=== PATIENT | female | born 1965 | race Caucasian/White ===

== ENCOUNTER → 2020-09-05 | Outpatient (CLI) | payer BC ==
[2020-09-05 08:17] LABS: Basophils # (A) 0.1 k/uL (0-0.2); Basophils % (A) 1 %; Eosinophils # (A) 0.4 k/uL (0-0.7); Eosinophils % (A) 7 %; HCT 43.7 % (34.0-46.0); HGB 14.5 gm/dL (11.4-16.0); Lymphocytes # (A) 2.4 k/uL (1.0-4.8); Lymphocytes % (A) 40 %; MCHC 33.1 g/dL (31.0-37.0); MCV 96.7 fL (80.0-100.0); Mean Platelet Volume 7.1; Monocytes # (A) 0.3 k/uL (0-1.0); Monocytes % (A) 5 %; Neutrophils # (A) 2.6 k/uL (1.3-7.7); Neutrophils % (A) 43 %; Platelet Count 271 k/uL (150-450); RBC 4.52 m/uL (3.80-5.40); RDW 12.6 % (11.5-15.5); WBC 5.9 k/uL (3.8-10.6)
[2020-09-05 11:21] LABS: Urine Creatinine 40.5 mg/dL
[2020-09-05 11:31] LABS: African American GFR (CKD) 97.6 (60.0-200.0); Albumin 4.7 g/dL (3.80-4.90); Albumin/Globulin Ratio 1.88 (1.60-3.17); Anion Gap 4.3 mmol/L (4.00-12.00); BUN/Creat Ratio 16.25 Ratio (12.00-20.00); Calcium 9.9 mg/dL (8.7-10.3); Carbon Dioxide 32.7 mmol/L (21.6-31.8); Chol/HDL Ratio 2.14; Globulin 2.5 g/dL (1.6-3.3); LDL Cholesterol,Calculated 110.8 mg/dL (0.0-131.0); Non-African American GFR(CKD) 84.2 (60.0-200.0); Potassium 4.1 mmol/L (3.5-5.5); Total Protein 7.2 g/dL (6.2-8.2); VLDL Calculation 12.2 mg/dL (5.00-40.00)
== END | disposition home or self-care (01) ==
LOC: LABWHC1 07:43
PROVIDERS: ATTEND Family Medicine
DX: Z00.00 Encounter for general adult medical examination without abnormal findings (principal); I10 Essential (primary) hypertension
CPT/HCPCS: 36415; 80053; 80061; 82043; 82570; 84443; 85025

== ENCOUNTER 2021-02-21 10:37 | Emergency (ER) | payer BC ==
[2021-02-21 10:48] VITALS: TEMP 97.5
--- NOTE | 2021-02-21 11:22 | ED ---
Lower Extremity Injury HPI - General Chief Complaint: Extremity Injury, Lower Stated Complaint: left side pain & tingling Time Seen by Provider: 02/21/21 10:54 Source: patient, RN notes reviewed Mode of arrival: wheelchair Limitations: no limitations - History of Present Illness Initial Comments: This a 55-year-old female presents emergency Department chief complaint of left leg pain. Patient states that she's been having abdominal pain states that she felt she pulled a muscle from vomiting. Patient states that she then had some tingling right sciatica. Patient states she became concerned because she had her [employer] vaccine 5 days ago and states that she saw new's article that she should be concerned. Denies any chest pain shortness breath. Patient states that she has chronic left trapezius muscle spasm in which she receives massages to help. She states that she had the same symptoms but have resolved. Patient is concerned about possible clot. Denies any bowel bladder incontinence or retention. - Related Data Allergies Allergy/AdvReac Type Severity Reaction Status Date / Time No Known Allergies Allergy Verified 02/21/21 10:47 Review of Systems ROS Statement: Those systems with pertinent positive or pertinent negative responses have been documented in the HPI. ROS Other: All systems not noted in ROS Statement are negative. Past Medical History Past Medical History: Hypertension History of Any Multi-Drug Resistant Organisms: None Reported Past Surgical History: No Surgical Hx Reported Past Psychological History: No Psychological Hx Reported Smoking Status: Never smoker Past Alcohol Use History: Daily Past Drug Use History: None Reported General Exam Limitations: no limitations General appearance: alert, in no apparent distress Head exam: Present: atraumatic, normocephalic, normal inspection Eye exam: Present: normal appearance, PERRL, EOMI. Absent: scleral icterus, conjunctival injection, periorbital swelling ENT exam: Present: normal exam, normal oropharynx, mucous membranes moist Neck exam: Present: normal inspection, full ROM. Absent: tenderness, meningismus, lymphadenopathy Respiratory exam: Present: normal lung sounds bilaterally. Absent: respiratory distress, wheezes, rales, rhonchi, stridor Cardiovascular Exam: Present: regular rate, normal rhythm, normal heart sounds. Absent: systolic murmur, diastolic murmur, rubs, gallop, clicks Extremities exam: Present: other (Full strength and range of motion of all extremities, nontender calf pulses are equal bilaterally) Back exam: Present: full ROM. Absent: tenderness, paraspinal tenderness, vertebral tenderness Neurological exam: Present: alert, oriented X3 Skin exam: Present: warm, dry, intact, normal color. Absent: rash Course Vital Signs 02/21/21 02/21/21 10:44 12:43 Temperature 97.5 F L Pulse Rate 69 56 L Respiratory 18 18 Rate Blood Pressure 148/88 117/83 O2 Sat by Pulse 100 100 Oximetry Medical Decision Making - Medical Decision Making Ultrasound negative. Patient is otherwise neurologically intact. Patient symptoms more consistent with lumbar radiculopathy. Patient has no red flag symptoms. Disposition Clinical Impression: Lumbar radiculopathy, acute Disposition: HOME SELF-CARE Condition: Stable Instructions (If sedation given, give patient instructions): Lumbar Radiculopathy (ED) Additional Instructions: Please return to the Emergency Department if symptoms worsen or any other concerns. Is patient prescribed a controlled substance at d/c from ED?: No Referrals: Marin Moore MD [Primary Care Provider] - 1-2 days Time of Disposition: 13:02
[2021-02-21 11:24] VITALS: RESP 18
[2021-02-21 12:46] VITALS: BP 117/83; PULSE 56
--- NOTE | 2021-02-21 12:53 | US ---
EXAMINATION TYPE: US venous doppler duplex LE LT DATE OF EXAM: 02/21/2021 11:39 AM COMPARISON: NONE CLINICAL HISTORY: pain. Left leg tingling SIDE PERFORMED: Left TECHNIQUE: The lower extremity deep venous system is examined utilizing real time linear array sonog dilcia with graded compression, doppler sonography and color-flow sonography. VESSELS IMAGED: Common Femoral Vein Deep Femoral Vein Greater Saphenous Vein * Femoral Vein Popliteal Vein Small Saphenous Vein * Proximal Calf Veins (* superficial vessels) Left Leg: Negative for DVT Grayscale, color doppler, spectral doppler imaging performed of the deep veins of the left lower extr emity. There is normal flow, compressibility, vascular waveforms. IMPRESSION: No ultrasound evidence for acute DVT in the left lower extremity.
== END 2021-02-21 13:15 | disposition home or self-care (01) ==
LOC: EC 10:37
DX: M54.16 Radiculopathy, lumbar region (principal); I10 Essential (primary) hypertension
CPT/HCPCS: 99284

== ENCOUNTER 2021-09-01 12:22 | Emergency (ER) | payer BC ==
[2021-09-01 12:41] VITALS: BP 118/77; RESP 18; TEMP 97.8
--- NOTE | 2021-09-01 15:15 | ED ---
General Adult HPI - General Source: patient Mode of arrival: ambulatory Limitations: no limitations <Leila Sosa - Last Filed: 09/02/21 00:12> <Clarissa Calhoun - Last Filed: 09/16/21 13:35> - General Chief complaint: Back Pain/Injury Stated complaint: L side pain Time Seen by Provider: 09/01/21 14:58 - History of Present Illness Initial comments: 56-year-old female with a history of sciatica, presents to the emergency Department with complaints of low back pain that radiates down the left leg. States symptoms occur at rest and are accompanied by intermittent episodes of numbness in the left calf and hayes. Patient states she is able to maintain physical activity and ran 3 miles this morning. Does have an appointment for massage scheduled tomorrow and takes a muscle relaxer as needed. Denies any saddle anesthesia, loss of bowel or bladder control, fever, or foot drop. (Leila Sosa) - Related Data Home Medications Medication Instructions Recorded Confirmed Ascorbic Acid [Vitamin C] 1,000 mg PO DAILY 02/21/21 02/21/21 Cholecalciferol [Vitamin D3 (25 25 mcg PO DAILY 02/21/21 02/21/21 Mcg = 1000 Iu)] Grapeseed Extract 1 tab PO DAILY 02/21/21 02/21/21 Plus Low Iron 1 tab PO DAILY 02/21/21 02/21/21 Tretinoin [Tretinoin 0.025%] 1 applic TOPICAL HS 02/21/21 02/21/21 Vitamin C/Biotin [Hair, Skin and 2 tab PO DAILY 02/21/21 02/21/21 Nails] amLODIPine [Norvasc] 5 mg PO DAILY 02/21/21 02/21/21 Allergies Allergy/AdvReac Type Severity Reaction Status Date / Time No Known Allergies Allergy Verified 09/01/21 12:41 Review of Systems ROS Other: All systems not noted in ROS Statement are negative. <Leila Sosa - Last Filed: 09/02/21 00:12> ROS Other: All systems not noted in ROS Statement are negative. <Clarissa Calhoun - Last Filed: 09/16/21 13:35> ROS Statement: Those systems with pertinent positive or pertinent negative responses have been documented in the HPI. Past Medical History Past Medical History: Hypertension History of Any Multi-Drug Resistant Organisms: None Reported Past Surgical History: No Surgical Hx Reported Past Psychological History: No Psychological Hx Reported Smoking Status: Never smoker Past Alcohol Use History: Occasional Past Drug Use History: None Reported <Leila Sosa - Last Filed: 09/02/21 00:12> General Exam Limitations: no limitations General appearance: alert, in no apparent distress, other (Well-developed, well-nourished female in no acute distress. Initial temperature 97.8, pulse 62, respirations 18, blood pressure 118/77, pulse ox 99% on room air.) Respiratory exam: Present: normal lung sounds bilaterally. Absent: respiratory distress, wheezes, rales, rhonchi, stridor Cardiovascular Exam: Present: regular rate, normal rhythm, normal heart sounds. Absent: systolic murmur, diastolic murmur, rubs, gallop, clicks Left Hip exam: Present: normal inspection, full ROM. Absent: tenderness, swelling Upper Leg exam: Present: normal inspection, full ROM. Absent: tenderness Lower Leg exam: Present: normal inspection, full ROM. Absent: tenderness, Homans' sign Neurovascular tendon exam: Present: no vascular compromise. Absent: pulse deficit, abnormal cap refill, motor deficit, sensory deficit, extremity cold to touch, foot drop, significant pain with passive ROM of distal joint Back exam: Present: normal inspection, full ROM. Absent: muscle spasm, paraspinal tenderness, vertebral tenderness Expanded Back exam: Absent: saddle anesthesia Back exam: Negative Straight Leg Raising: Left, Right Neurological exam: Present: alert, oriented X3, CN II-XII intact Psychiatric exam: Present: normal affect, normal mood Skin exam: Present: warm, dry, intact, normal color. Absent: rash <Leila Sosa - Last Filed: 09/02/21 00:12> Course Vital Signs 09/01/21 09/01/21 12:37 17:38 Temperature 97.8 F Pulse Rate 62 66 Respiratory 18 Rate Blood Pressure 118/77 O2 Sat by Pulse 99 99 Oximetry Medical Decision Making - Radiology Data Radiology results: report reviewed, image reviewed <Leila Sosa - Last Filed: 09/02/21 00:12> <Clarissa Calhoun - Last Filed: 09/16/21 13:35> - Medical Decision Making 56-year-old female presents to the emergency department for evaluation of low back pain that radiates down the left leg. Physical exam findings are negative. Patient ambulates easily, makes position changes without difficulty, and has negative straight leg raises. Patient denies saddle anesthesia, foot drop, or loss of bowel and bladder control. Patient does report running 3 miles prior to arrival and states discomfort occurs with prolonged sitting. No significant findings on lumbar spine x-ray. Patient reports having a massage scheduled for this week and has already been prescribed muscle relaxers. This patient's case was discussed with my attending Dr. Calhoun. Patient is instructed to follow-up with her primary care provider for a recheck in the next 1-2 days. Return parameters were discussed in detail. Patient verbalizes understanding and agrees with this plan. (Leila Sosa) I was available for consultation in the emergency department. The history and physical exam were done by the midlevel provider. I was consulted for this patients care. I reviewed the case with the midlevel provider and based on their presentation of the patient, I agree with the assessment, medical decision making and plan of care as documented. Chart was dictated using [employer] dictation software. Attempts were made to correct any dictation errors however some typographical errors may persist. (Clarsisa Calhoun) - Radiology Data CT of the lumbar spine was obtained. Report was reviewed in its entirety. Impression per Dr. Lam is moderate facet arthropathy at the lower lumbar spine. (Leila Sosa) Disposition Is patient prescribed a controlled substance at d/c from ED?: No Time of Disposition: 16:59 <Leila Sosa - Last Filed: 09/02/21 00:12> <Clarissa Calhoun - Last Filed: 09/16/21 13:35> Clinical Impression: Back pain Disposition: HOME SELF-CARE Condition: Stable Instructions (If sedation given, give patient instructions): Acute Low Back Pain (ED) Additional Instructions: Rest as needed. Continue using your muscle relaxer as needed. Scheduled opportunities for stretching and ambulation during prolonged periods of sitting. Follow-up with your primary care provider for a recheck. Return to the emergency department with any new, worsening, or concerning symptoms. Referrals: Marin Moore MD [Primary Care Provider] - 1-2 days
--- NOTE | 2021-09-01 16:26 | XR ---
EXAMINATION TYPE: XR lumbar spine 2 or 3V DATE OF EXAM: 09/01/2021 CLINICAL HISTORY: Low back pain radiating down the right leg TECHNIQUE: Frontal and lateral images of the lumbar spine are obtained. COMPARISON: None FINDINGS: 5 lumbar type vertebral bodies. Lumbar vertebral body heights and alignment are maintained. No spondylolisthesis or spondylolysis. No significant degenerative disc changes. Moderate facet arthropathy of the lower lumbar spine most p ronounced at L3-4 and L4-5. IMPRESSION: Moderate facet arthropathy at the lower lumbar spine.
[2021-09-01 17:39] VITALS: PULSE 66
== END 2021-09-01 17:39 | disposition home or self-care (01) ==
LOC: EC 12:22
DX: M54.50 Low back pain, unspecified (principal); I10 Essential (primary) hypertension
CPT/HCPCS: 72100; 99283

== ENCOUNTER 2024-11-13 17:25 | Emergency (ER) | payer BC ==
[2024-11-13 18:01] VITALS: RESP 18; TEMP 98.2
--- NOTE | 2024-11-13 18:18 | ED ---
Abdominal Pain HPI - General Chief Complaint: Abdominal Pain Stated Complaint: ABD PN Time Seen by Provider: 11/13/24 18:04 Source: patient, RN notes reviewed Mode of arrival: ambulatory Limitations: no limitations - History of Present Illness Initial Comments: This is a 59-year-old female with no significant medical history presented to emergency room for chief complaint of intermittent abdominal pain most noted of the right upper quadrant over the past month and a half. Patient states that the pain seems to worsen at night after she has eaten or symptoms after she has had a glass of wine of the right upper quadrant wraparound into her back. She d enies associated nausea, vomiting, diarrhea, constipation, dysuria, hematuria, hematochezia, melena. She denies associated fevers or chills. Patient states that she was evaluated outside emergency facility on 11/09/2024 over x-ray was completed of her abdomen with no acute process. Denies previous surgical abdominal history. - Related Data Home Medications Medication Instructions Recorded Confirmed Ascorbic Acid [Vitamin C] 1,000 mg PO DAILY 02/21/21 02/21/21 Cholecalciferol [Vitamin D3 (25 25 mcg PO DAILY 02/21/21 02/21/21 Mcg = 1000 Iu)] Grapeseed Extract 1 tab PO DAILY 02/21/21 02/21/21 Plus Low Iron 1 tab PO DAILY 02/21/21 02/21/21 Tretinoin [Tretinoin 0.025%] 1 applic TOPICAL HS 02/21/21 02/21/21 Vitamin C/Biotin [Hair, Skin and 2 tab PO DAILY 02/21/21 02/21/21 Nails] amLODIPine [Norvasc] 5 mg PO DAILY 02/21/21 02/21/21 Allergies Allergy/AdvReac Type Severity Reaction Status Date / Time No Known Allergies Allergy Verified 11/13/24 17:57 Review of Systems ROS Statement: Those systems with pertinent positive or pertinent negative responses have been documented in the HPI. ROS Other: All systems not noted in ROS Statement are negative. Past Medical History Past Medical History: Hypertension History of Any Multi-Drug Resistant Organisms: None Reported Past Surgical History: No Surgical Hx Reported Additional Past Surgical History / Comment(s): cyst removed from wrist Past Psychological History: No Psychological Hx Reported Smoking Status: Never smoker Past Alcohol Use History: Daily Past Drug Use History: None Reported General Exam Limitations: no limitations Neck exam: Present: normal inspection. Absent: tenderness, meningismus, lymphadenopathy Respiratory exam: Present: normal lung sounds bilaterally. Absent: respiratory distress, wheezes, rales, rhonchi, stridor Cardiovascular Exam: Present: regular rate, normal rhythm, normal heart sounds. Absent: systolic murmur, diastolic murmur, rubs, gallop, clicks GI/Abdominal exam: Present: soft, normal bowel sounds. Absent: distended, tenderness, guarding, rebound, rigid Extremities exam: Present: normal inspection, full ROM, normal capillary refill. Absent: tenderness, pedal edema, joint swelling, calf tenderness Back exam: Present: normal inspection Course Vital Signs 11/13/24 11/13/24 17:58 20:01 Temperature 98.2 F Pulse Rate 66 76 Respiratory 18 18 Rate Blood Pressure 131/86 130/76 O2 Sat by Pulse 100 98 Oximetry Medical Decision Making - Medical Decision Making Was pt. sent in by a medical professional or institution (, PA, HAND HARDENER, urgent care, hospital, or penitentiary...) When possible be specific @ -No Did you speak to anyone other than the patient for history (EMS, parent, family, police, friend...)? What history was obtained from this source @ -No Did you review nursing and triage notes (agree or disagree)? Why? @ -I reviewed and agree with nursing and triage notes Were old charts reviewed (outside hosp., previous admission, EMS record, old EKG, old radiological studies, urgent care reports/EKG's, penitentiary records)? Report findings @ -No old charts were reviewed Differential Diagnosis (chest pain, altered mental status, abdominal pain women, abdominal pain men, vaginal bleeding, weakness, fever, dyspnea, syncope, headache, dizziness, GI bleed, back pain, seizure, CVA, palpatations, mental health, musculoskeletal)? @ -Differential Abdominal Pain Women: Appendicitis, Cholecystitis, diverticulosis, ischemic bowel, pancreatitis, hepatitis, UTI, gastroenteritis, AAA, incarcerated hernia, bowel obstruction, constipation, inflammatory bowel, hepatitis, peptic ulcer disease, splenic infarction, perforated viscus, vulvitis, ovarian torsion, PID, kidney stone, p lacenta abruption, this is not meant to be an all-inclusive list EKG interpreted by me (3pts min.). @ -None X-rays interpreted by me (1pt min.). @ -None done CT interpreted by me (1pt min.). @ -None done U/S interpreted by me (1pt. min.). @ -Ultrasound gallbladder reveals no sonographic evidence of cholelithiasis or acute cholecystitis What testing was considered but not performed or refused? (CT, X-rays, U/S, labs)? Why? @ -None What meds were considered but not given or refused? Why? @ -None Did you discuss the management of the patient with other professionals (daylin silver i.ePamela Floyd, PA, HAND HARDENER, lab, RT, psych nurse, oncology social worker, motorized squad captain, teacher, environmental technical officer, correctional case records supervisor)? Give summary @ -No Was smoking cessation discussed for >3mins.? @ -No Was critical care preformed (if so, how long)? @ -No Were there social determinants of health that impacted care today? How? (Homelessness, low income, unemployed, alcoholism, drug addiction, transportation, low edu. Level, literacy, decrease access to med. care, assisted, rehab)? @ -No Was there de-escalation of care discussed even if they declined (Discuss DNR or withdrawal of care, Hospice)? DNR status @ -No What co-morbidities impacted this encounter? (DM, HTN, Smoking, COPD, CAD, Cancer, CVA, ARF, Chemo, Hep., AIDS, mental health diagnosis, sleep apnea, morbid obesity)? @ -None Was patient admitted / discharged? Hospital course, mention meds given and route, prescriptions, significant lab abnormalities, going to OR and other pertinent info. @ -Discharge. 59-year-old female presenting with intermittent diffuse abdominal pain with most frequently occurring right upper quadrant, pain. On my evalu ation the patient is resting company no signs acute distress. Abdominal examination is unremarkable for tenderness, negative Nava sign. Patient will undergo laboratory testing in addition to ultrasound of the gallbladder. CBC, CMP, urinalysis unremarkable. Ultrasound no evidence for cholecystitis or cholelithiasis. Recommend that patient follow-up outpatient with primary care provider for further evaluation. Case discussed with Dr. Valverde Undiagnosed new problem with uncertain prognosis? @ -No Drug Therapy requiring intensive monitoring for toxicity (Heparin, Nitro, Insu alcira, Cardizem)? @ -No Were any procedures done? @ -No Diagnosis/symptom? @ -unspecified abdominal pain Acute, or Chronic, or Acute on Chronic? @ -acute Uncomplicated (without systemic symptoms) or Complicated (systemic symptoms)? @ -uncomplicated Side effects of treatment? @ -No Exacerbation, Progression, or Severe Exacerbation? @ -No Poses a threat to life or bodily function? How? (Chest pain, [place], [place], pneumonia, PE, COPD, DKA, ARF, appy, cholecystitis, CVA, Diverticulitis, Homicidal, Suicidal, threat to staff... and all critical care pts) @ -No - Lab Data Result diagrams: 11/13/24 19:08 11/13/24 19:08 Lab Results 11/13/24 11/13/24 11/13/24 Range/Units 19:08 19: 19:08 WBC 7.3 (3.8-10.6) k/uL RBC 4.56 (3.80-5.40) m/uL Hgb 14.2 (11.4-16.0) gm/dL Hct 42.4 (34.0-46.0) % MCV 93.0 (80.0-100.0) fL MCH 31.2 (25.0-35.0) pg MCHC 33.5 (31.0-37.0) g/dL RDW 12.7 (11.5-15.5) % Plt Count 273 (150-450) k/uL MPV 6.9 Neutrophils % 47 % Lymphocytes % 40 % Monocytes % 5 % Eosinophils % 6 % Basophils % 1 % Neutrophils # 3.5 (1.3-7.7) k/uL Lymphocytes # 2.9 (1.0-4.8) k/uL Monocytes # 0.3 (0-1.0) k/uL Eosinophils # 0.4 (0-0.7) k/uL Basophils # 0.1 (0-0.2) k/uL Sodium 139 (137-145) mmol/L Potassium 4.4 (3.5-5.1) mmol/L Chloride 102 (98-107) mmol/L Carbon Dioxide 26 (22-30) mmol/L Anion Gap 11 mmol/L BUN 14 (7-17) mg/dL Creatinine 0.86 (0.52-1.04) mg/dL Est GFR (CKD-EPI)AfAm 87 (>60 ml/min/1.73 sqM) Est GFR (CKD-EPI)NonAf 76 (>60 ml/min/1.73 sqM) Glucose 89 (74-99) mg/dL Calcium 9.9 (8.4-10.2) mg/dL Total Bilirubin 0.3 (0.2-1.3) mg/dL AST 28 (14-36) U/L ALT 21 (4-34) U/L Alkaline Phosphatase 92 (38-126) U/L Total Protein 8.5 H (6.3-8.2) g/dL Albumin 5.2 H (3.5-5.0) g/dL Amylase 64 (30-110) U/L Lipase 105 (23-300) U/L Urine Color Colorless Urine Appearance Clear (Clear) Urine pH 5.5 (5.0-8.0) Ur Specific [place] 1.004 (1.001-1.035) Urine Protein Negative (Negative) Urine Glucose (UA) Negative (Negative) Urine Ketones Negative (Negative) Urine Blood Negative (Negative) Urine Nitrite Negative (Negative) Urine Bilirubin Negative (Negative) Urine Urobilinogen <2.0 (<2.0) mg/dL Ur Leukocyte Esterase Negative (Negative) Disposition Clinical Impression: Abdominal pain Disposition: HOME SELF-CARE Condition: Good Instructions (If sedation given, give patient instructions): Abdominal Pain (ED) Additional Instructions: Please return to the Emergency Department if symptoms worsen or any other concerns. Is patient prescribed a controlled substance at d/c from ED?: No Referrals: Marin Moore [Primary Care Provider] - 1-2 days Time of Disposition: 19:56
--- NOTE | 2024-11-13 19:11 | US ---
EXAMINATION TYPE: US gallbladder DATE OF EXAM: 11/13/2024 COMPARISON: NONE CLINICAL INDICATION: Female, 59 years old with history of intermittent RUQ pain, bloating; RLQ/midlin e discomfort that comes and goes TECHNIQUE: Grayscale and color Doppler imaging of the right upper quadrant was performed. FINDINGS: EXAM MEASUREMENTS: Liver Length: 14.5 cm Gallbladder Wall: 0.1 cm CBD: 0.4 cm Right Kidney: 9.9 x 5.5 x 4.0 cm Pancreas: wnl as visualized at time of scan, main pancreatic duct = 2.0 mm Liver: wnl Gallbladder: No stones or wall thickening seen at time of scan Evidence for sonographic Nava's sign: neg CBD: wnl Right Kidney: Dilated renal pelvis IMPRESSION: No sonographic evidence of cholelithiasis or acute cholecystitis. [facility] Diego Perez, , 11/13/2024 7:08 PM
[2024-11-13 19:14] LABS: Appearance,Urine Clear (Clear); Bilirubin,Urine Negative (Negative); Blood,Urine Negative (Negative); Color,Urine Colorless; Glucose,Urine (UA) Negative (Negative); Ketones,Urine Negative (Negative); Leukocyte Esterase,Urine Negative (Negative); Nitrite,Urine Negative (Negative); PH, Urine 5.5 (5.0-8.0); Protein,Urine Negative (Negative); Specific Gravity,Urine 1.004 (1.001-1.035); Urobilinogen,Urine <2.0 mg/dL (<2.0)
[2024-11-13 19:16] LABS: Basophils # (A) 0.1 k/uL (0-0.2); Basophils % (A) 1 %; Eosinophils # (A) 0.4 k/uL (0-0.7); Eosinophils % (A) 6 %; HCT 42.4 % (34.0-46.0); HGB 14.2 gm/dL (11.4-16.0); Lymphocytes # (A) 2.9 k/uL (1.0-4.8); Lymphocytes % (A) 40 %; MCH 31.2 pg (25.0-35.0); MCHC 33.5 g/dL (31.0-37.0); Mean Platelet Volume 6.9; Monocytes # (A) 0.3 k/uL (0-1.0); Monocytes % (A) 5 %; Neutrophils # (A) 3.5 k/uL (1.3-7.7); Neutrophils % (A) 47 %; Platelet Count 273 k/uL (150-450); RBC 4.56 m/uL (3.80-5.40); RDW 12.7 % (11.5-15.5); WBC 7.3 k/uL (3.8-10.6)
[2024-11-13 19:37] LABS: ALT 21 U/L (4-34); AST 28 U/L (14-36); African American GFR (CKD) 87 (>60 ml/min/1.73 sqM); Albumin 5.2 g/dL (3.5-5.0); Alkaline Phosphatase 92 U/L (38-126); Amylase 64 U/L (30-110); Anion Gap 11 mmol/L; Blood Urea Nitrogen 14 mg/dL (7-17); Calcium 9.9 mg/dL (8.4-10.2); Carbon Dioxide 26 mmol/L (22-30); Chloride 102 mmol/L (98-107); Glucose 89 mg/dL (74-99); Lipase 105 U/L (23-300); Non-African American GFR(CKD) 76 (>60 ml/min/1.73 sqM); Potassium 4.4 mmol/L (3.5-5.1); Sodium 139 mmol/L (137-145); Total Bilirubin 0.3 mg/dL (0.2-1.3); Total Protein 8.5 g/dL (6.3-8.2)
[2024-11-13 20:03] VITALS: BP 130/76; PULSE 76
== END 2024-11-13 20:34 | disposition home or self-care (01) ==
LOC: EC 17:25
DX: R10.11 Right upper quadrant pain (principal)
CPT/HCPCS: 36415; 76705; 80053; 81003; 82150; 83690; 85025; 99284

== ENCOUNTER → 2024-11-16 | Outpatient (CLI) | payer BC ==
[2024-11-16 11:52] LABS: Appearance,Urine Clear (Clear); Bilirubin,Urine Negative (Negative); Blood,Urine Negative (Negative); Color,Urine Light Yellow; Glucose,Urine (UA) Negative (Negative); Ketones,Urine Negative (Negative); Leukocyte Esterase,Urine Negative (Negative); Nitrite,Urine Negative (Negative); Protein,Urine Negative (Negative); Specific Gravity,Urine 1.006 (1.001-1.035); Urobilinogen,Urine <2.0 mg/dL (<2.0)
[2024-11-16 15:44] LABS: Basophils # (A) 0.05 X 10*3/uL (0.00-0.10); Basophils % (A) 0.9 %; Eosinophils # (A) 0.21 X 10*3/uL (0.04-0.35); Eosinophils % (A) 3.6 %; HCT 40.9 % (37.2-46.3); HGB 13.3 g/dL (12.0-15.0); Lymphocytes # (A) 2.26 X 10*3/uL (0.90-5.00); Lymphocytes % (A) 39.1 %; MCH 30.2 pg (27.0-32.0); MCHC 32.5 g/dL (32.0-37.0); Mean Platelet Volume 10.2 FL (9.5-12.2); Monocytes # (A) 0.52 X 10*3/uL (0.20-1.00); NRBC Per 100 WBC 0 X 10*3/uL (0.00-0.01); Neutrophils # (A) 2.73 X 10*3/uL (1.80-7.70); Neutrophils % (A) 47.2 %; Platelet Count 268 X 10*3/uL (140-440); RDW 12.7 % (11.5-14.5); WBC 5.78 X 10*3/uL (4.50-10.00)
[2024-11-16 16:04] LABS: ALT 17 U/L (8-44); AST 22 U/L (13-35); Albumin 4.7 g/dL (3.8-4.9); Albumin/Globulin Ratio 1.68 Ratio (1.60-3.17); Alkaline Phosphatase 64 U/L (41-126); Amylase 48 U/L (23-121); Blood Urea Nitrogen 10.8 mg/dL (9.0-27.0); Calcium 9.8 mg/dL (8.7-10.3); Carbon Dioxide 27.1 mmol/L (21.6-31.8); Chloride 98 mmol/L (96-109); Globulin 2.8 g/dL (1.6-3.3); Glucose 86 mg/dL (70-110); Iron 156 UG/DL (50-170); LDL Cholesterol,Calculated 146.6 mg/dL (0.0-131.0); Lipase 30 U/L (14-63); Potassium 4.2 mmol/L (3.5-5.5); Sodium 137 mmol/L (135-145); Total Bilirubin 0.7 mg/dL (0.3-1.2); Total Protein 7.5 g/dL (6.2-8.2)
== END | disposition home or self-care (01) ==
LOC: LABWHC1 09:46
PROVIDERS: ATTEND Family Medicine
DX: E78.00 Pure hypercholesterolemia, unspecified (principal); I10 Essential (primary) hypertension; D64.9 Anemia, unspecified; R11.0 Nausea
CPT/HCPCS: 36415; 80053; 80061; 81003; 82150; 83540; 83690; 84443; 85025